=== PATIENT | female | born 1995 ===

== ENCOUNTER 2020-07-06 19:08 | Emergency (ER) | payer SELFPAY ==
[2020-07-06 19:13] VITALS: BP 118/71; Wt 72.7 kg
[2020-07-06] MEDS ORDERED: VOLTAREN75 MG PO (19:39)
== END 2020-07-06 21:00 | disposition home or self-care (01) ==
LOC: D.ER 19:08
DX: S93.401A Sprain of unspecified ligament of right ankle, initial encounter (principal); M25.571 Pain in right ankle and joints of right foot; X50.1XXA Overexertion from prolonged static or awkward postures, initial encounter; Y93.9 Activity, unspecified; Y92.9 Unspecified place or not applicable

== ENCOUNTER 2020-08-28 12:53 | Emergency (ER) | payer SELFPAY ==
[~2020-08-28] VITALS: Ht 152.4 cm; Wt 70.9 kg
[~2020-08-28 12:53] MED LIST: VOLTAREN75 MG PO
[2020-08-28 13:11] VITALS: BP 120/87; Ht 152.4 cm; Wt 70.9 kg
[2020-08-28 13:29] LABS: BASOPHILS 0.4 % (0-2); EOSINOPHILS 2.1 % (0-7); HEMATOCRIT 42.8 % (36.0-48.0); HEMOGLOBIN 14.1 g/dL (12-16); LYMPHOCYTES 24.3 % (15-50); MCHC 33.1 g/dL (31.0-37.0); MCV 90.7 fL (80.0-100.0); MEAN PLATELET VOLUME 8.5 fL (7.4-10.4); MONOCYTES 7.7 % (2-11); NEUTROPHILS 65.5 % (40-80); PLATELET COUNT 329 10x3/uL (130-400); RBC 4.71 10x6/uL (4.00-5.40); WBC 9.2 10x3/uL (4.8-10.8)
[2020-08-28 13:40] LABS: CALC OSMOLALITY 283 mosm/kg (275-300); CALCIUM 8.5 mg/dL (8.5-10.1); CARBON DIOXIDE 27.5 mmol/L (21.0-32.0); CHLORIDE - SERUM 107 mmol/L (98-107); CREATININE - SERUM 0.9 mg/dL (0.6-1.3); GLUCOSE 100 mg/dL (74-106); POTASSIUM - SERUM 3.6 mmol/L (3.5-5.1); SODIUM 143 mmol/L (136-145); UREA NITROGEN 11 mg/dL (7-18); eGFR NON AFRICAN AMERICAN 82 mL/min (90-120)
[2020-08-28 13:43] LABS: ALBUMIN 3.3 g/dL (3.4-5.0); ALKALINE PHOSPHATASE 77 U/L (30-120); ALT (SGPT) 16 U/L (10-68); BILIRUBIN - TOTAL 0.31 mg/dL (0.2-1.3); PROTEIN - SERUM 6.7 g/dL (6.4-8.2)
[2020-08-28] MEDS ORDERED: CLEOCIN HCL300 MG PO (14:54)
== END 2020-08-28 15:01 | disposition home or self-care (01) ==
LOC: D.ER 12:53
PROVIDERS: Family Medicine
DX: N61.0 Mastitis without abscess (principal)